=== PATIENT | male | born 1930 | race Caucasian/White ===

== ENCOUNTER 2016-09-29 20:43 | Emergency (ER) | payer MEDICARE, BC ==
[2016-09-29 20:58] VITALS: BP 186/94
[2016-09-29] MEDS ORDERED: Penicillin V Potassium 500 MG Tab PO STA (21:16)
[2016-09-29] MEDS ORDERED: Acetaminophen/HYDROcodone 325-5 MG Tab PO ONE (21:21)
[2016-09-29] MEDS ORDERED: Penicillin V Potassium 250 MG Tab ONE (21:26)
--- NOTE | 2016-09-29 21:26 | EDM.PDOC ---
ED HPI GENERAL MEDICAL PROBLEM - General Chief Complaint: ENT Problem Stated Complaint: TEETH AND GUM PAIN Time Seen by Provider: 09/29/16 21:15 Source of Information: Reports: Patient, Family, Old Records History Limitations: Reports: No Limitations - History of Present Illness INITIAL COMMENTS - FREE TEXT/NARRATIVE: 85 yo male here with dental pain. The called his dentist on Friday and they could not get him in and stated they would be closed the entire week of October 01. No fever. Onset: Other Onset Date: 09/27/16 Duration: Day(s): Location: Reports: Face (mouth) Quality: Reports: Ache Severity: Moderate Improves with: Reports: None Worsens with: Reports: Other (time) Context: Reports: Other (hx of prior tooth infections) Associated Symptoms: Reports: No Other Symptoms Treatments [employer]: Reports: Other (see below) (none) Right Lower Oral/Mouth Pain Score (Numeric/FACES): 10 - Related Data Allergies Allergy/AdvReac Type Severity Reaction Status Date / Time oxycodone Allergy Chest Pain Verified 09/29/16 20:58 Kdgfyee-Czb-Olm Reductase Allergy Cannot Verified 09/29/16 20:58 Inhibitor Remember Home Meds: Home Meds Levothyroxine Sodium [Tirosint] 88 mcg PO DAILY 04/28/13 [History] Lisinopril 10 mg PO BID 04/28/13 [History] metFORMIN [Glucophage] 1,000 mg PO BID 04/28/13 [History] Aspirin 162 mg PO DAILY 05/29/15 [History] ClonazePAM [KlonoPIN] 0.25 mg PO BEDTIME 05/29/15 [History] Loperamide [Imodium AD] 2 mg PO ASDIRECTED 03/16/16 [History] Metoprolol Succinate 25 mg PO DAILY 03/16/16 [History] Nitroglycerin 0.4 mg SL ASDIRECTED 03/16/16 [History] Acetaminophen [Tylenol Extra Strength] 1,000 mg TID PRN 04/01/16 [History] Triamcinolone Acetonide [Triamcinolone Acetonide 0.1% Crm] 1 appful BID [History] Acetaminophen/HYDROcodone [Risingsun 325-5 MG] 1 - 2 tab PO Q4H PRN #30 tab [Rx] Penicillin V Potassium 500 mg PO Q8HR #30 tab 09/29/16 [Rx] Past Medical History HEENT History: Reports: Cataract, Hard of Hearing, Impaired Vision Other HEENT History: wears glasses Cardiovascular History: Reports: Angina, Hypertension, [place], SOB on Exertion Respiratory History: Reports: Other (See Below) Other Respiratory History: angina pt has hx of SOB Gastrointestinal History: Reports: Cholelithiasis Genitourinary History: Reports: Prostate Disorder, Renal Calculus Musculoskeletal History: Reports: Osteoarthritis Neurological History: Reports: Headaches, Chronic, Parkinson's, Other (See Below ) Other Neuro History: tremors, lesion found on the brain by MRI in [place] in last June or July Psychiatric History: Reports: Other (See Below) Other Psychiatric History: forgetful Endocrine/Metabolic History: Reports: Diabetes, Type II, Hypothyroidism, Obesity /BMI 30+ Hematologic History: Reports: Other (See Below) Other Hematologic History: MAGNESIUM DEFICIENCY Oncologic (Cancer) History: 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 Feb - Infectious Disease History Infectious Disease History: Reports: Chicken Pox, Shingles - Past Surgical History HEENT Surgical History: Reports: Cataract Surgery Musculoskeletal Surgical History: Reports: None Social & Family History - Family History HEENT: Reports: Cataract Cardiac: Reports: [place] : Reports: Renal Calculus OBGYN: Reports: Musculoskeletal: Reports: Osteoarthritis Neurological: Reports: CVA, Parkinson's Endocrine/Metabolic: Reports: None Oncologic: Reports: Lymphoma - Tobacco Use Smoking Status *Q: Never Smoker Used Tobacco, but Quit: Yes Month Tobacco Last Used: January Second Hand Smoke Exposure: No - Caffeine Use Caffeine Use: Reports: None - Alcohol Use Days Per Week of Alcohol Use: 0 - Recreational Drug Use Recreational Drug Use: No - Living Situation & Occupation Living situation: Reports: , with Spouse ED ROS ENT - Review of Systems Review Of Systems: See Below Constitutional: Reports: No Symptoms HEENT: Reports: Dental Pain Respiratory: Reports: No Symptoms Skin: Reports: No Symptoms Neurological: Reports: No Symptoms ED EXAM, ENT - Physical Exam Exam: See Below Exam Limited By: No Limitations General Appearance: Alert, WD/WN, No Apparent Distress Eye Exam: Bilateral Eye: Normal Inspection Ears: Normal External Exam, Normal Canal, Hearing Grossly Normal Nose: Normal Inspection, Normal Mucousa, No Blood Mouth/Throat: Normal Inspection, Normal Lips, Normal Oropharynx, Other (R mandibular premolar has a filling and no visible decay. Percussion with a tongue blade illicets much pain. Slight swelling noted under the angle of the jaw on that side. No skin erythema. ). No: Bleeding Course - Vital Signs Text/Narrative:: Pen Vk 500 mg po Take home pack of Risingsun given. Last Recorded V/S: Last Vital Signs Temp 36.6 C 09/29/16 20:53 Pulse 82 09/29/16 20:53 Resp 20 09/29/16 20:53 BP 186/94 H 09/29/16 20:53 Pulse Ox 98 09/29/16 20:53 - Orders/Labs/Meds Meds: Medications Discontinued Medications Generic Name Dose Route Start Last Admin Trade Name Freq PRN Reason Stop Dose Admin Penicillin V Potassium 500 mg 09/29/16 21:16 Veetids PO 09/29/16 21:17 NOW STA Departure - Departure Time of Disposition: 21:30 Disposition: Home, Self-Care 01 Condition: Good Clinical Impression: Dental infection - Discharge Information Prescriptions: Penicillin V Potassium 500 mg PO Q8HR #30 tab Acetaminophen/HYDROcodone [Risingsun 325-5 MG] 1 - 2 tab PO Q4H PRN #30 tab PRN Reason: Pain Referrals: Howard Portillo MD [Primary Care Provider] - Forms: ED Department Discharge Additional Instructions: Take penicillin every 8 hrs until gone. Take Risingsun OR acetaminophen as needed for pain relief. See your dentist estelle. See your doctor if needed in the meantime.
== END 2016-09-29 21:40 | disposition home or self-care (01) ==
LOC: FB.ED 20:43
DX: K04.7 Periapical abscess without sinus (principal); I10 Essential (primary) hypertension; I25.2 Old myocardial infarction; M19.90 Unspecified osteoarthritis, unspecified site; E11.9 Type 2 diabetes mellitus without complications; E03.9 Hypothyroidism, unspecified; E66.9 Obesity, unspecified; Z88.8 Allergy status to other drugs, medicaments and biological substances; Z79.899 Other long term (current) drug therapy; Z79.82 Long term (current) use of aspirin
CPT/HCPCS: 99282; A9270; 99283